=== PATIENT | male | born 1960 | race African-American/Black ===

== ENCOUNTER 2018-09-14 18:01 | Inpatient (IN) | payer OTHER ==
[~2018-09-14] VITALS: Ht 144.8 cm; Wt 83.9 kg
--- NOTE | 2018-09-14 18:02 | NUR ---
EDI FROM HOME FOR ABDOMINAL PAIN W/ N/V SINCE TUESDAY, TO ER BED 4, [facility], [facility] A[facility] MD BAUTISTA
--- NOTE | 2018-09-14 18:35 | NUR ---
KAYE MORALES AT BEDSIDE
[2018-09-14] MEDS ORDERED: ONDANSETRON HCL/PF 4 MG/2 ML VIAL ONE (18:53)
[2018-09-14] MEDS ORDERED: ONDANSETRON HCL/PF 4 MG/2 ML VIAL IVP ONE (19:00)
[2018-09-14] MEDS ORDERED: IV NS 0.9% 1,000 ML BAG IV ONE ×3 (19:00→19:30)
[2018-09-14 19:07] LABS: HEMATOCRIT 51 % (39-51); HEMOGLOBIN 17.3 g/dL (13.5-17.5); LYMPHOCYTES % (AUTO) 17.5 % (20.0-44.0); MEAN CORPUSCULAR HGB CONC 34 g/dl (31.0-36.0); MEAN CORPUSCULAR VOLUME 88 fL (80-96); MONOCYTES % (AUTO) 9.2 % (2.0-12.0); NEUTROPHILS % (AUTO) 72.6 % (43.0-81.0); PLATELET COUNT (AUTO) 210 /CMM (150-450); WHITE BLOOD COUNT (AUTO) 11.9 K/uL (4.3-11.0)
[2018-09-14 19:08] LABS: BASOPHILS # (AUTO) 0.1 /CMM (0.0-0.2); BASOPHILS % (AUTO) 0.5 % (0.0-2.0); EOSINOPHILS % (AUTO) 0.2 % (0.0-6.0); LYMPHOCYTES # (AUTO) 2.1 /CMM (0.8-4.8); MONOCYTES # (AUTO) 1.1 /CMM (0.1-1.30); NEUTROPHILS # (AUTO) 8.6 /CMM (1.8-8.9)
[2018-09-14 19:09] LABS: CREATININE 3.2 mg/dL (0.6-1.3); POTASSIUM 3.1 mmol/L (3.5-5.1)
[2018-09-14 19:14] LABS: ALBUMIN 4.3 g/dL (3.4-5.0); BILIRUBIN,DIRECT 0.2 mg/dL (0.0-0.2); BILIRUBIN,TOTAL 0.9 mg/dL (0.2-1.0); TOTAL PROTEIN, SERUM 10.1 g/dL (6.4-8.2)
[2018-09-14] MEDS ORDERED: HYDROMORPHONE INJ 2 MG/ML DISP.SYRIN IV ONE (19:30)
--- NOTE | 2018-09-14 19:37 | NUR ---
REPORT GIVEN TO NAVEED PIZARRO FOR MEME
[2018-09-14] MEDS ORDERED: HYDROMORPHONE INJ 0.5 MG/0.5 ML SYRINGE ONE (19:47)
[2018-09-14] MEDS ORDERED: POTASSIUM CHLORIDE 20 MEQ TAB.PRT.SR PO ONE ×2 (19:47→20:00)
[2018-09-14 19:49] LABS: APPEARANCE,URINE Clear (CLEAR); BILIRUBIN,URINE MODERATE (NEGATIVE); BLOOD, URINE Trace-lysed Ery/uL (NEGATIVE); COLOR,URINE Dark (YELLOW); KETONES,URINE 15 (NEGATIVE); LEUKOCYTE ESTERASE ,URINE Negative (NEGATIVE); NITRITE, URINE Negative (NEGATIVE); PROTEIN,URINE >=300 mg/dl (NEGATIVE); UGLUCOSE Negative (NEGATIVE)
[2018-09-14 19:58] LABS: BACTERIA,URINE Few /HPF (None Seen); MUCUS,URINE Many /LPF (None Seen); SQUAMOUS EPITHELIAL CELL,UR Few /HPF (None Seen); WBC,URINE 0-2 /HPF (0-3)
--- NOTE | 2018-09-14 21:01 | NUR ---
PT TAKEN TO CT VIA RBRUCE.
--- NOTE | 2018-09-14 21:10 | NUR ---
PT back from CT and put on the monitor. Will continue to monitor pt.
--- NOTE | 2018-09-14 21:42 | NUR ---
Report given to Amira anthony for [facility].
[2018-09-14] MEDS ORDERED: ASPI81TA44 PO (21:47)
[2018-09-14] MEDS ORDERED: HYDR25TA4 PO (21:47)
[2018-09-14] MEDS ORDERED: ELVI1TAB3 PO (21:47)
[2018-09-14] MEDS ORDERED: AMLODIPINE BESYLATE 5 MG TABLET PO ONE (22:00)
[2018-09-14] MEDS ORDERED: AMLODIPINE BESYLATE 5 MG TABLET PO SCH (22:00)
--- NOTE | 2018-09-14 22:00 | NUR ---
Pt hypertensive, ER Aware. Will carry out orders.
[2018-09-14] MEDS ORDERED: AMLODIPINE BESYLATE 5 MG TABLET ONE (22:04)
--- NOTE | 2018-09-14 22:07 | NUR ---
LEGAL CONTRACTS SPECIALIST NOTE RECEIVED PT IN STABLE CONDITION VIA [facility] FROM [facility]. NO SIGNS OF SOB OR DISTRESS. NO PAIN AT THIS TIME.PT IS A&O X4, INDONESIAN SPEAKING, ACCOMPANIED BY . PT SKIN IS IN TACT. ALL BELONGINGS ACCOUNTED AND SIGNED FOR AND PLACED IN CHART. ALL CURRENT NEEDS MET. SAFETY PRECAUTIONS IN PLACE: BED LOW, LOCKED, UPPER RAILS UP, AND CALL LIGHT WITHIN REACH. WILL CONT TO MONITOR.
[2018-09-14 23:18] VITALS: BP 169/98
[2018-09-15] MEDS ORDERED: ZOLPIDEM TARTRATE 5 MG TABLET PO PRN (01:00)
[2018-09-15] MEDS ORDERED: ONDANSETRON HCL/PF 4 MG/2 ML VIAL IVP PRN (01:00)
[2018-09-15] MEDS ORDERED: Z GUARD REMEDY 2 OZ OINT TP PRN (01:00)
[2018-09-15] MEDS ORDERED: ACETAMINOPHEN 325 MG TABLET PO PRN (01:00)
[2018-09-15] MEDS ORDERED: MAG HYDROX/AL HYDROX/SIMETH 30 ML UDC PO PRN (01:00)
[2018-09-15] MEDS: IV NS 0.9% 1,000 ML IV PRN ×3 (01:08→23:08)
--- NOTE | 2018-09-15 06:32 | NUR ---
MS RN NOTE PT IN STABLE CONDITION A&O X4. NO SIGNS OF SOB OR DISTRESS. NO PAIN AT THIS TIME. SETSWANA SPEAKING, AT BEDSIDE. ALL CURRENT NEEDS MET. SAFETY PRECAUTIONS IN PLACE: BED LOW, LOCKED, UPPER RAILS UP, AND CALL LIGHT WITHIN REACH. WILL CONT TO MONITOR AND ENDORSE TO NEXT SHIFT FOR MEME.
--- NOTE | 2018-09-15 07:28 | NUR ---
MS RN OPENING NOTES RECEIVED PT AWAKE IN BED IN NO ACUTE SIGNS OF DISTRESS. AT BEDSIDE. A/O X4. ABLE TO VERBALIZED NEEDS WITH NO C/O PAIN OR DISCOMFORTS VOICED AT THIS TIME. ON ROOM AIR, BREATHING EVEN AND UNLABORED. IV ACCESS ON RAC INTACT AND PATENT, IVF OF NS @ 100ML/HR INFUSING, NO S/S OF INFILTRATIONS NOTED. BED IN LOW LOCKED POSITION WITH UPPER RAILS UP. CALL LIGHT WITHIN REACH. WILL CONTINUE TO MONITOR.
[2018-09-15 07:50] LABS: BASOPHILS % (AUTO) 0.2 % (0.0-2.0); EOSINOPHILS % (AUTO) 0.8 % (0.0-6.0); HEMATOCRIT 42 % (39-51); HEMOGLOBIN 14.2 g/dL (13.5-17.5); LYMPHOCYTES # (AUTO) 1.5 /CMM (0.8-4.8); LYMPHOCYTES % (AUTO) 18.8 % (20.0-44.0); MEAN CORPUSCULAR HGB CONC 34 g/dl (31.0-36.0); MEAN CORPUSCULAR VOLUME 89 fL (80-96); MONOCYTES # (AUTO) 0.7 /CMM (0.1-1.30); MONOCYTES % (AUTO) 8.9 % (2.0-12.0); NEUTROPHILS # (AUTO) 5.6 /CMM (1.8-8.9); NEUTROPHILS % (AUTO) 71.3 % (43.0-81.0); PLATELET COUNT (AUTO) 155 /CMM (150-450); RED BLOOD CELL COUNT(AUTO) 4.77 MIL/uL (4.5-6.0); WHITE BLOOD COUNT (AUTO) 7.9 K/uL (4.3-11.0)
[2018-09-15 08:00] VITALS: BP 125/82
[2018-09-15 08:01] LABS: CALCIUM, SERUM 8.6 mg/dL (8.5-10.1); PHOSPHORUS 3.4 mg/dL (2.5-4.9); POTASSIUM 2.9 mmol/L (3.5-5.1)
--- NOTE | 2018-09-15 09:59 | NUR ---
RN NOTES PATIENT TOLERATED CLEAR LIQUIDS DIET AT BREAKFAST WITHOUT ABDOMINAL PAIN, N & V. DIET ADVANCED TO FULL LIQUIDS DIET. WILL CONTINUE TO MONITOR
[2018-09-15] MEDS: POTASSIUM CHLORIDE 20 MEQ TAB.PRT.SR PO SCH ×2 (10:02→11:18)
--- NOTE | 2018-09-15 11:19 | NUR ---
RN NOTES PATIENT NOTED WITH LOW LEVEL POTASSIUM 2.9 TODAY, REPLACED WITH K DUR 40MEQ PO. WILL CONTINUE TO MONITOR Addendum: 09/15/18 at 1158 by KYLEIGH BUSH RN ADDENDUM: PT SEEN AND EVALUATED BY LA NENA MELGAR AND ORDERED TO GIVE ANOTHER K-DUR 20MEQ IN ADDITION TO THE 40MEQ GIVEN EARLIER
[2018-09-15] MEDS ORDERED: POTASSIUM CHLORIDE 20 MEQ TAB.PRT.SR PO ONE (11:30)
[2018-09-15] MEDS: [UNRECOGNIZED DRUG - OTHER] PO SCH (13:35)
[2018-09-15] MEDS: ENSURE ENLIVE 237 ML LIQUID (VANILLA) PO SCH (15:51)
[2018-09-15 15:55] VITALS: BP 139/96
--- NOTE | 2018-09-15 17:13 | NUR ---
RN NOTES PATIENT MOVED TO UNIT 2 ROOM 203-1 FROM 321-1 VIA WHEELCHAIR. REPORT GIVEN TO JUAREZ BROCK.
--- NOTE | 2018-09-15 17:25 | NUR ---
MS/GUITAR TECHNICIAN PATIENT TRANSFERRED FROM MS 3 TO MS 2 IN STABLE CONDITION. A/O X 4. NO SIGNS OF ACUTE DISTRESS. NO COMPLAIN OF PAIN OR DISCOMFORT. REPORT GIVEN BY ALEJANDRA PIZARRO FOR ANY MEME. ALL NEEDS ATTENDED TO. CALL LIGHT WITHIN REACH. WILL CONTINUE TO MONITOR TO ENSURE SAFETY.
--- NOTE | 2018-09-15 18:09 | NUR ---
MS/RN CLOSING NOTE PATIENT IN BED IN STABLE CONDITION. A/O X 4. NO SIGNS OF ACUTE DISTRESS. NO COMPLAIN OF PAIN OR DISCOMFORT. ALL NEEDS ATTENDED TO. CALL LIGHT WITHIN REACH. WILL ENDORSE TO NEXT SHIFT FOR CONTINUITY OF CARE.
--- NOTE | 2018-09-15 19:00 | NUR ---
RN NOTES RECEIVE PT IN THE BED A/O X 3 IN STABLE CONDITION, NOT IN DISTRESS, SAFETY MEASURES IN PLACE. WILL CONTINUE TO MONITOR.
[2018-09-15 20:00] VITALS: BP 120/78
--- NOTE | 2018-09-15 21:04 | NUR ---
Met with patient and Bhavya at bedside. Patient is alert and pleasant,lives locally with spouse. States he is ambulatory and independent with adl's. He goes to [facility] clinic in [place] for pcp and medications. Denies dc planning needs at this time. Addendum: 09/15/18 at 2105 by MESSI MOJICA RN Amended: Links added.
[2018-09-16 06:25] LABS: BASOPHILS # (AUTO) 0.1 /CMM (0.0-0.2); BASOPHILS % (AUTO) 0.9 % (0.0-2.0); EOSINOPHILS % (AUTO) 1.7 % (0.0-6.0); HEMATOCRIT 41 % (39-51); HEMOGLOBIN 13.2 g/dL (13.5-17.5); LYMPHOCYTES # (AUTO) 1.5 /CMM (0.8-4.8); MEAN CORPUSCULAR HGB CONC 33 g/dl (31.0-36.0); MEAN CORPUSCULAR VOLUME 90 fL (80-96); MONOCYTES # (AUTO) 0.6 /CMM (0.1-1.30); MONOCYTES % (AUTO) 9.8 % (2.0-12.0); NEUTROPHILS # (AUTO) 4.3 /CMM (1.8-8.9); NEUTROPHILS % (AUTO) 64.6 % (43.0-81.0); PLATELET COUNT (AUTO) 138 /CMM (150-450); RED BLOOD CELL COUNT(AUTO) 4.53 MIL/uL (4.5-6.0); WHITE BLOOD COUNT (AUTO) 6.6 K/uL (4.3-11.0)
--- NOTE | 2018-09-16 06:36 | NUR ---
RN CLOSING NOTE PT IN BED ASLEEP AND EASILY AWAKEN 02 SAT 100% TOLERATING ROOM AIR. STABLE CONDITION, NOT IN DISTRESS. RESPIRATIONS EVEN AND UNLABORED. NURSING CARE RENDERED, NO COMPLAIN OF PAIN KEPT CLEAN AND DRY AND COMFORT, SAFETY MEASURES IN PLACE, CALL LIGHT WITHIN REACH. WILL ENDORSE TO PROSTHETIC LAB TECHNICIAN FOR MEME.
[2018-09-16 06:43] LABS: CALCIUM, SERUM 8.7 mg/dL (8.5-10.1); CREATININE 1.6 mg/dL (0.6-1.3); POTASSIUM 3.5 mmol/L (3.5-5.1)
--- NOTE | 2018-09-16 07:19 | NUR ---
MS/RN OPENING NOTE PATIENT IN BED IN STABLE CONDITION. A/O X 4. NO SIGNS OF ACUTE DISTRESS. NO COMPLAIN OF PAIN OR DISCOMFORT. ALL NEEDS ATTENDED TO. CALL LIGHT WITHIN REACH. WILL CONTINUE TO MONITOR TO ENSURE SAFETY.
[2018-09-16 08:00] VITALS: BP 130/84
[2018-09-16] MEDS: ENSURE ENLIVE 237 ML LIQUID (VANILLA) PO SCH (08:12)
[2018-09-16] MEDS: [UNRECOGNIZED DRUG - OTHER] PO SCH (08:12)
[2018-09-16] MEDS: ASPIRIN EC 81 MG TABLET.DR PO SCH (08:12)
[2018-09-16] MEDS: HYDROCHLOROTHIAZIDE 25 MG TABLET PO SCH (09:00)
[2018-09-16] MEDS: IV NS 0.9% 1,000 ML IV PRN ×2 (10:05→20:46)
--- NOTE | 2018-09-16 10:15 | NUR ---
MS/RN RECEIVED CALL FROM LAB PER ED HE NOTIFY PATIENT BLOOD CX PRELIMINARY RESULTS OF GRAM COCCI POSITIVE. MD NOTIFIED.
--- NOTE | 2018-09-16 11:03 | NUR ---
MS/RN SEEN BY LA NENA DYSON AND NOTIFY PATIENTS PRELIMINARY BLOOD CX RESULTS POSITIVE GRAM COCCI PER KARIS HE WILL PUT IN ID CONSULT.
[2018-09-16 16:00] VITALS: BP 135/83
[2018-09-16] MEDS ORDERED: FEE PK DOSING 1 MIN EA MC ONE (18:16)
--- NOTE | 2018-09-16 18:36 | NUR ---
MS/RN SPOKE WITH FABBY FROM PHARM AND MADE AWARE PATIENT HAS VANCOMYCIN IVPB DUE AT 6PM BUT MEDICATION NOT AVAILABLE IN CASSETTE. PER FABBY FROM PHARM THE TECH WILL DELIVER IN 5 TO 10 MINUTES.
--- NOTE | 2018-09-16 18:38 | NUR ---
MS/RN CLOSING NOTE PATIENT IN BED IN STABLE CONDITION. A/O X 4, NO SIGNS OF ACUTE DISTRESS. NO COMPLAIN OF PAIN OR DISCOMFORT. ALL NEEDS ATTENDED TO. CALL LIGHT WITHIN REACH. WILL ENDORSE TO NEXT SHIFT FOR CONTINUITY OF CARE.
[2018-09-16] MEDS: VANCOMYCIN 1 GM in IV D5W 250 ML IV SCH (18:55)
--- NOTE | 2018-09-16 19:33 | NUR ---
RN NOTES RECEIVE PT IN THE BED A/O X 4 AT BEDSIDE IN STABLE CONDITION, NOT IN DISTRESS, SAFETY MEASURES IN PLACE. WILL CONTINUE TO MONITOR.
[2018-09-16 20:00] VITALS: BP 137/73
--- NOTE | 2018-09-17 06:08 | NUR ---
RN CLOSING NOTE ASLEEP AND EASILY AWAKEN, RESPIRATIONS EVEN AND UNLABORED. AM CARE RENDERED. NO COMPLAIN OF PAIN IN STABLE CONDITION, NOT IN DISTRESS. NURSING CARE RENDERED, KEPT CLEAN AND DRY AND COMFORT, NEEDS ATTENDED AND ANCTIPATED. SAFETY MEASURES IN PLACE, CALL LIGHT WITHIN REACH. WILL ENDORSE TO SUPPLY CHAIN PLANNER FOR MEME.
--- NOTE | 2018-09-17 07:55 | NUR ---
MS RN OPENING NOTE RECEIVED PATIENT AWAKE IN BED LOCKED IN LOWEST POSITION WITH SIDERAILS UP x2 FOR SAFETY. ABLE TO COMMUNICATE NEEDS. IV INTACT AND PATENT ON RIGHT AC WITH IV FLUIDS RUNNING AT 100 ML/HR. CALL LIGHT WITHIN REACH. NO PAIN NOTED AT THIS TIME. NO SOB OR DISTRESS NOTED ON ROOM AIR TOLERATING WELL AT 98%. WILL CONTINUE TO MONITOR THROUGHOUT SHIFT
[2018-09-17 07:56] LABS: BASOPHILS # (AUTO) 0.1 /CMM (0.0-0.2); BASOPHILS % (AUTO) 1.2 % (0.0-2.0); EOSINOPHILS % (AUTO) 2.5 % (0.0-6.0); HEMATOCRIT 39 % (39-51); HEMOGLOBIN 12.6 g/dL (13.5-17.5); LYMPHOCYTES # (AUTO) 1.5 /CMM (0.8-4.8); LYMPHOCYTES % (AUTO) 27.5 % (20.0-44.0); MEAN CORPUSCULAR HGB CONC 33 g/dl (31.0-36.0); MEAN CORPUSCULAR VOLUME 89 fL (80-96); MONOCYTES # (AUTO) 0.6 /CMM (0.1-1.30); MONOCYTES % (AUTO) 10.7 % (2.0-12.0); NEUTROPHILS # (AUTO) 3.1 /CMM (1.8-8.9); NEUTROPHILS % (AUTO) 58.1 % (43.0-81.0); PLATELET COUNT (AUTO) 148 /CMM (150-450); RED BLOOD CELL COUNT(AUTO) 4.32 MIL/uL (4.5-6.0); WHITE BLOOD COUNT (AUTO) 5.3 K/uL (4.3-11.0)
[2018-09-17 08:00] VITALS: BP 126/85
[2018-09-17 08:08] LABS: CALCIUM, SERUM 8.5 mg/dL (8.5-10.1); CREATININE 1.3 mg/dL (0.6-1.3); POTASSIUM 3.5 mmol/L (3.5-5.1)
[2018-09-17 08:59] VITALS: BP 126/85
[2018-09-17] MEDS: ASPIRIN EC 81 MG TABLET.DR PO SCH (08:59)
[2018-09-17] MEDS: HYDROCHLOROTHIAZIDE 25 MG TABLET PO SCH (08:59)
[2018-09-17] MEDS: [UNRECOGNIZED DRUG - OTHER] PO SCH (09:00)
[2018-09-17] MEDS: ENSURE ENLIVE 237 ML LIQUID (VANILLA) PO SCH (09:00)
[2018-09-17] MEDS: VANCOMYCIN 1 GM in IV D5W 250 ML IV SCH (12:05)
[2018-09-17] MEDS: IV NS 0.9% 1,000 ML IV PRN (12:09)
--- NOTE | 2018-09-17 14:40 | NUR ---
JOURNEYMAN ELECTRICIAN PV INSTALLER NOTE PATIENT DISCHARGED TO HOME IN STABLE CONDITION. HOME MEDICATIONS GIVEN TO PATIENT UPON DISCHARGE. IV REMOVED AND SKIN INTACT. ALERT AND ORIENTED x4 AND ABLE TO COMMUNICATE NEEDS. NO PAIN NOTED AT THIS TIME. NO SOB OR DISTRESS NOTED ON ROOM AIR TOLERATING WELL. DISCHARGE INSTRUCTIONS GIVEN TO PATIENT AT BEDSIDE, TEACH BACK RECEIVED. ALL NEEDS MET. ALL DUE MEDICATIONS GIVEN ORDERED. FOLLOW UP WITH PCP OUTPATIENT. LEFT VIA PRIVATE CAR WITH GIRLFRIEND.
[2018-09-21 20:15] LABS: *ABSOLUTE CD 4 HELPER 576
[2018-09-21 20:16] LABS: *% CD 8 POS. LYMPH 34.9; *ABSOLUTE CD 8 SUPPRESSOR 558
[2018-09-21 20:29] LABS: *BASOS 1; *CD4/CD8 RATIO 1.03; *EOS 2; *EOS, ABSOLUTE 0.1; *HCT 38.4; *HGB 12.5; *LYMPHOCYTES 31; *LYMPHS, ABSOLUTE 1.6; *MCH 28.8; *MCHC 32.6; *MCV 89; *MONOCYTES 9; *MONOS, ABSOLUTE 0.5; *NEUTROPHILS 57; *PLT 154; *RBC 4.34; *RDW 14.1
[2018-09-21 20:30] LABS: *BASOS, ABSOLUTE 0.1
[2018-09-21 21:01] LABS: *IMMATURE GRANULOCYTES 0 %
== END 2018-09-17 14:47 | disposition home or self-care (01) | DRG 391 ==
LOC: ER 18:20 → TELE 21:39 → MED 09-15 06:02 → MEDSG2 09-15 17:02
PROVIDERS: ADMIT Nurse Practitioner Acute Care; ATTEND Nurse Practitioner Acute Care
DX: A08.4 Viral intestinal infection, unspecified (principal); N17.0 Acute kidney failure with tubular necrosis; E87.2 Acidosis; E87.1 Hypo-osmolality and hyponatremia; E86.0 Dehydration; I12.9 Hypertensive chronic kidney disease with stage 1 through stage 4 chronic kidney disease, or unspecified chronic kidney disease; N18.9 Chronic kidney disease, unspecified; E86.9 Volume depletion, unspecified; T50.2X5A Adverse effect of carbonic-anhydrase inhibitors, benzothiadiazides and other diuretics, initial encounter; Y92.89 Other specified places as the place of occurrence of the external cause; D72.829 Elevated white blood cell count, unspecified; R74.0 Nonspecific elevation of levels of transaminase and lactic acid dehydrogenase [LDH]; F10.10 Alcohol abuse, uncomplicated; E78.5 Hyperlipidemia, unspecified; E87.6 Hypokalemia
CPT/HCPCS: 36415; 71045-TC; 76700-TC; 80048-TC; 80061-TC; 80076-TC; 81000-TC; 83605-TC; 83690-TC; 83735-TC; 84100-TC; 85025-TC; 86360; 87040-TC; 87081-TC; 87400; G0378; J2405; J3370; J7030; J7060